=== PATIENT | male | born 2000 | race Two or more races ===

== ENCOUNTER 2021-12-21 22:22 | Emergency (ER) | payer OTHER, BC ==
[2021-12-22] MEDS ORDERED: Ondansetron 4 MG/2 ML SDV IVPUSH ONE (00:12)
[2021-12-22] MEDS ORDERED: HYDROmorphone 0.5 MG/0.5 ML Syringe IVPUSH ONE (00:12)
[2021-12-22] MEDS ORDERED: Sodium Chloride 0.9% 1,000 ML IV STA (00:12)
[2021-12-22] MEDS ORDERED: Iopamidol 612 MG/ML 100 ML Bottle IVPUSH ONE (00:34)
[2021-12-22] MEDS ORDERED: Iopamidol 612 MG/ML 50 ML SDV IVPUSH ONE (00:34)
== END 2021-12-22 02:20 | disposition home or self-care (01) ==
LOC: JD.ED 22:22
DX: S61.212A Laceration without foreign body of right middle finger without damage to nail, initial encounter (principal); S30.1XXA Contusion of abdominal wall, initial encounter; Z91.030 Bee allergy status; V49.40XA Driver injured in collision with unspecified motor vehicles in traffic accident, initial encounter; Y92.410 Unspecified street and highway as the place of occurrence of the external cause
CPT/HCPCS: 36415; 71260; 72131; 73140; 74177; 80053; 85007; 85027; 85610; 85730; 96361; 96374; 96375; 99284; J1170; J2405; J7030; Q9967